=== PATIENT | female | born 1965 | race Asian ===

== ENCOUNTER 2022-03-18 06:43 | Day surgery (SDC) | payer OTHER ==
[~2022-03-18] VITALS: Ht 152.4 cm; Wt 59.0 kg
[2022-03-18] MEDS ORDERED: CEFAZOLIN SOD 1 GM/ ISO 50 ML PREMIX IV ONE (07:00)
[2022-03-18] MEDS ORDERED: MEPERIDINE 100 MG INJ. 100 MG/ML VIAL ONE (07:50)
[2022-03-18] MEDS ORDERED: MIDAZOLAM HCL 5 MG/5 ML VIAL ONE ×2 (07:51→09:43)
[2022-03-18] MEDS ORDERED: GLYCOPYRROLATE 0.2 MG/ML VIAL ONE (09:43)
[2022-03-18 13:37] VITALS: BP_SYST 102
== END 2022-03-18 11:04 | disposition home or self-care (01) ==
LOC: SDS 06:43 → SMU 06:44 → SDS 11:04
PROVIDERS: ATTEND Colon & Rectal Surgery
DX: Z12.11 Encounter for screening for malignant neoplasm of colon (principal); Z20.822 Contact with and (suspected) exposure to COVID-19; Z80.3 Family history of malignant neoplasm of breast
CPT/HCPCS: 36415 ×2; 45380; 87426; 88305; U0003; G0378; J3490; J2250; J2175; J0690